=== PATIENT | female | born 1935 | race Caucasian/White ===

== ENCOUNTER → 2017-05-03 | Outpatient (CLI) | payer MEDICARE, OTHER ==
[~2017-05-03] MED LIST: 1-ME1LIQ PO; ALLE4TAB28 PO; AMLO10TA2 PO; ASAC400T PO; ASAC800T PO; CALCTAB75 PO; CYAN1TAB24 PO; D32000TA PO; DIOV80TA4 PO; GUAN2ER PO; GUAN2TAB PO; LEVO137T2 PO; LEVO175T2 PO; LOVA20TA PO; NAPR500T PO; OXYC-360 PO; QUEN12.5 PO; SERT-132 PO; STOOL SOFTNER; TYLETAB34 PO; VALS1TAB64 PO; VITA-136 PO; VITA20002 PO; VITA250L PO; [UNRECOGNIZED DRUG - OTHER] PO
[2017-05-03 09:23] LABS: AUTOMATED NEUTROPHIL # 4.5 TH/MM3 (1.8-7.7); BASOPHIL # 0.1 TH/MM3 (0-0.2); BASOPHIL % 0.6 % (0.0-2.0); EOSINOPHIL # 0.2 TH/MM3 (0-0.4); EOSINOPHIL % 2.8 % (0.0-4.0); HEMATOCRIT 42.3 % (35.0-46.0); HEMO FLAGS DIFF FINAL; LYMPH % 36.9 % (9.0-44.0); LYMPHOCYTE # 3.2 TH/MM3 (1.0-4.8); MEAN CELL VOLUME 88.2 FL (80.0-100.0); MEAN CORPUSCULAR HEMOGLOBIN 29.4 PG (27.0-34.0); MEAN CORPUSCULAR HGB CONC 33.3 % (32.0-36.0); MONO % 6.5 % (0.0-8.0); NEUT % 53.2 % (16.0-70.0); PLATELET COUNT 203 TH/MM3 (150-450); RED BLOOD COUNT 4.79 MIL/MM3 (4.00-5.30); RED CELL DISTRIBUTION WIDTH 13.6 % (11.6-17.2); WHITE BLOOD COUNT 8.5 TH/MM3 (4.0-11.0)
[2017-05-03 10:06] LABS: ANION GAP 7 MEQ/L (5-15); AST (GOT) 20 U/L (15-37); BICARBONATE 28.2 MEQ/L (21.0-32.0); BLOOD UREA NITROGEN 9 MG/DL (7-18); CHLORIDE 106 MEQ/L (98-107); GLOMERULAR FILTRATION RATE 67 ML/MIN (>89); POTASSIUM 4.6 MEQ/L (3.5-5.1); SODIUM (NA) 141 MEQ/L (136-145)
[2017-05-03 10:07] LABS: ALT (GPT) 22 U/L (10-53)
[2017-05-03 10:09] LABS: ALKALINE PHOSPHATASE 67 U/L (45-117); TOTAL BILIRUBIN ADULT 0.9 MG/DL (0.2-1.0)
[2017-05-03 10:18] LABS: FREE T4 1.3 NG/DL (0.76-1.46)
== END ==
LOC: PLAB 07:46
PROVIDERS: ATTEND Family Medicine
DX: E03.9 Hypothyroidism, unspecified (principal); K51.90 Ulcerative colitis, unspecified, without complications
CPT/HCPCS: 36415; 80053; 84439; 84443; 85025

== ENCOUNTER 2017-06-05 11:48 | Emergency (ER) | payer MEDICARE, OTHER ==
[~2017-06-05] VITALS: Ht 160 cm; Wt 80.0 kg
[~2017-06-05 11:48] MED LIST changes: -ALLE4TAB28 PO; -AMLO10TA2 PO; -ASAC800T PO; -CYAN1TAB24 PO; -D32000TA PO; -GUAN2TAB PO; -LEVO137T2 PO; -NAPR500T PO; -TYLETAB34 PO; -VALS1TAB64 PO; -VITA-136 PO; -[UNRECOGNIZED DRUG - OTHER] PO
[2017-06-05 11:49] VITALS: BP 144/68; PULSE 84; RESP 20; TEMP 98.5; O2SAT 92
--- NOTE | 2017-06-05 11:58 | PD ---
Physical Exam Time Seen by Provider: 11:56 Narrative Pt presents to the ED for evaluation of back pain for 1 week. States she missed a step [place] cruise ship last [place] and landed onto her back. States she "felt her back twist" and has had mid to lower back pain since then. VSS. Awaiting bed placement. Data Data Last Documented VS Vital Signs Date Time Temp Pulse Resp B/P Pulse Ox O2 Delivery O2 Flow Rate FiO2 06/05/17 11:49 98.5 84 20 144/68 92 Room Air MDM Supervised Visit with NADIA: Kelly Cates Jun 05, 2017 11:58
[2017-06-05] MEDS ORDERED: [UNRECOGNIZED DRUG - OTHER] PO (12:21)
[2017-06-05] MEDS ORDERED: ALLE4TAB28 PO (12:21)
[2017-06-05] MEDS ORDERED: AMLO10TA2 PO (12:21)
[2017-06-05] MEDS ORDERED: CYAN1TAB24 PO (12:21)
[2017-06-05] MEDS ORDERED: GUAN2TAB PO (12:21)
[2017-06-05] MEDS ORDERED: SERT-132 PO (12:21)
[2017-06-05] MEDS ORDERED: VITA-136 PO (12:21)
[2017-06-05] MEDS ORDERED: VALS1TAB64 PO (12:21)
[2017-06-05] MEDS ORDERED: ASAC800T PO (12:21)
[2017-06-05] MEDS ORDERED: D32000TA PO (12:21)
[2017-06-05] MEDS ORDERED: LOVA20TA PO (12:21)
[2017-06-05] MEDS ORDERED: LEVO137T2 PO (12:21)
[2017-06-05] MEDS ORDERED: KETOROLAC TROMETHAMINE 60 MG/2 ML (IM) VIAL IM ONE (12:30)
[2017-06-05] MEDS ORDERED: ORPHENADRINE INJ 60 MG/2 ML AMP IM ONE (12:30)
[2017-06-05] MEDS ORDERED: oxyCODONE/ACETAMINOPHEN 5 MG/325 MG TAB PO ONE (12:30)
--- NOTE | 2017-06-05 12:31 | PD ---
HPI Chief Complaint: Back/ Neck Pain or Injury Time Seen by Provider: 12:20 Travel History International Travel<30 days: Yes Contact w/Intl Traveler<30days: Yes Name of Country Traveled to: [place] Traveled to known affect area: No History of Present Illness HPI 82-year-old female presents for evaluation after a mechanical fall. She reports that 1 week ago on a cruise she missed a step and fell to the ground. She does not remember specifically if she fell on her back or on her buttocks or legs. Chadd, since then she has had pain in her lower back and left buttocks region. Pain is a twingy type of pain that is constant but worse when sitting or moving. She has been using heating pads and Tylenol. She was unable to get an appointment with her primary care physician, Dr. Dean, which prompted evaluation today. Denies headache, neck pain, upper back pain, chest pain or shortness of breath, numbness or tingling or weakness or radicular pain in the upper or lower extremities, nausea or vomiting, abdominal pain. She has no other complaints. PFSH Past Medical History Arthritis: Yes Autoimmune Disease: No Heart Rhythm Problems: No Cancer: No Cardiovascular Problems: Yes High Cholesterol: Yes Chest Pain: No Congestive Heart Failure: No Diabetes: No Endocrine: No Genitourinary: Yes (2 KIDNEYS,1 ON LEFT. UTI) Hepatitis: No Hiatal Hernia: No Hypertension: Yes Immune Disorder: No Kidney Stones: No Musculoskeletal: Yes Neurologic: No Psychiatric: No Reproductive: No Respiratory: No Immunizations Current: Yes Renal Failure: No Thyroid Disease: Yes Influenza Vaccination: Yes ?: Not Past Surgical History Abdominal Surgery: Yes (cholecystectomy with appendectomy) Body Medical Devices: lense implants Cardiac Surgery: No Endocrine Surgery: No Eye Surgery: Yes (LAURYN CATARACTS) Genitourinary Surgery: No Gynecologic Surgery: No Joint Replacement: No Oral Surgery: Yes (tonsillectomy) Pacemaker: No Thoracic Surgery: No Other Surgery: Yes Social History Alcohol Use: Yes (OCCASIONALLY) Tobacco Use: No Substance Use: No Allergies-Medications (Allergen,Severity, Reaction): Coded Allergies: No Known Allergies (Unverified , 06/05/17) Reported Meds & Prescriptions Reported Meds & Active Scripts Active Tylenol-Codeine #3 (Acetaminophen-Codeine) 300-30 mg Tab 1 Tab PO Q4H PRN Naproxen 500 Mg Tab 500 Mg PO BID 7 Days Reported Allergy Relief (Chlorpheniramine Maleate) 4 Mg Tab 4 Mg PO Q4H PRN Women's Daily Caplet (Multivit,Calc,Mins/Iron/Folic) 1 Each Tablet 2 Tab PO DAILY Vitamin E (Vitamin E Acetate) 400 Unit Capsule 1 Cap PO DAILY D3 (Cholecalciferol) 2,000 Unit Tab 2,000 Unit PO DAILY B12 (Cyanocobalamin) 1,000 Mcg Tab 1,000 Mcg PO DAILY Asacol HD (Mesalamine) 800 Mg Tab 800 Mg PO TID Swallow whole. Take on an empty stomach. Lovastatin 20 Mg Tab 20 Mg PO DAILY Levothyroxine (Levothyroxine Sodium) 137 Mcg Tab 137 Mcg PO DAILY Sertraline (Sertraline HCl) 50 Mg Tab 50 Mg PO DAILY Amlodipine (Amlodipine Besylate) 10 Mg Tab 10 Mg PO DAILY Guanfacine (Guanfacine HCl) 2 Mg Tab 1.5 Tab PO DAILY Do not crush, chew or divide tablet. Take with a meal. Valsartan 80 Mg Tab 80 Mg PO DAILY Review of Systems Except as stated in HPI: all other systems reviewed are Neg Physical Exam Narrative GENERAL: Pleasant well-developed well-nourished female in no acute distress sitting upright in hospital bed. SKIN: Warm and dry. There is no bruising or soft tissue swelling to the buttocks or back or flank regions. HEAD: Atraumatic. Normocephalic. EYES: Pupils equal and round. No scleral icterus. No injection or drainage. ENT: No nasal bleeding or discharge. Mucous membranes pink and moist. NECK: Trachea midline. No JVD. CARDIOVASCULAR: Regular rate and rhythm. No murmur appreciated. RESPIRATORY: No accessory muscle use. Clear to auscultation. Breath sounds equal bilaterally. GASTROINTESTINAL: Abdomen soft, non-tender, nondistended. Hepatic and splenic margins not palpable. MUSCULOSKELETAL: No obvious deformities. There is mild tenderness to palpation to the lower lumbar spine and left sacroiliac region. The patient maintains full range of motion of the lower extremities. She does have some pain with left hip rotation and flexion. NEUROLOGICAL: Awake and alert. No obvious cranial nerve deficits. Motor grossly within normal limits. Normal speech. PSYCHIATRIC: Appropriate mood and affect; insight and judgment normal. Data Data Last Documented VS Vital Signs Date Time Temp Pulse Resp B/P Pulse Ox O2 Delivery O2 Flow Rate FiO2 06/05/17 11:49 98.5 84 20 144/68 92 Room Air Orders Hip, Uni(Ap&Lat) W Ap Pelvis (06/05/17 ) Spine, Lumbar - Ltd (Ap & Lat) (06/05/17 ) Oxycodone-Acetamin 5-325 Mg (Percocet (06/05/17 12:30) Orphenadrine Inj (Norflex Inj) (06/05/17 12:30) Ketorolac Inj (Toradol Inj) (06/05/17 12:30) Ct Thor Spine W/O Contrast (06/05/17 ) MDM Medical Decision Making Medical Screen Exam Complete: Yes Emergency Medical Condition: Yes Medical Record Reviewed: Yes Differential Diagnosis Contusion, hematoma, muscle strain, fracture Narrative Course 82-year-old female has been experiencing lower back/left buttocks pain from mechanical fall and week ago. Examination reveals no bruising or soft tissue swelling, no range of motion limitation, she has been ambulatory. She does have some pain with left hip rotation, some tenderness to palpation to the lower back and left sacroiliac region. Plan is for x-ray of the pelvis/left hip , lumbar spine. She has normal renal function from lab work one month ago. She will be given Toradol, Norflex and Percocet for symptom relief. X-ray imaging revealed a mild compression along superior endplate of T12 of unknown age. Therefore CT of the thoracic spine was ordered and it reveals that the compression deformity is subacute. Upon reexamination the patient's pain is significantly improved. The plan would be to discharge the patient with a short course of naproxen as well as Tylenol with codeine for breakthrough pain, advised follow-up with primary care physician in one week for recheck. She is agreeable to this plan. She is stable for discharge. Diagnosis Primary Impression: Lumbar strain Qualified Code: S39.012A - Lumbar strain, initial encounter Additional Instructions: Medication as needed. Do not drive or drink alcohol and taking Tylenol with codeine. Rest, avoid strenuous activity. Follow-up with her primary care physician in one week for recheck. Return for any emergent medical conditions. Med/Other Pt SpecificInfo: Prescription(s) given Scripts Acetaminophen-Codeine (Tylenol-Codeine #3)300-30 mg Tab1 Tab PO Q4H PRN (PAIN) # 15 TAB Ref 0 Prov:Melissa Diaz DO 06/05/17 Naproxen 500 Mg [id number] Mg PO BID 7 Days Ref 0 Prov:Melissa Diaz DO 06/05/17 Disposition: 01 DISCHARGE HOME Condition: Stable Kodi Christian Jun 05, 2017 12:31
--- NOTE | 2017-06-05 13:26 | RADRPT ---
EXAM DATE/TIME: 06/05/2017 12:47 [facility] COMPARISON: No previous studies available for comparison. INDICATIONS : Fell last Saturday on cruise ship, pain with limited motion left hip. MEDICAL HISTORY : SURGICAL HISTORY : None. ENCOUNTER: Initial ACUITY: 1 week PAIN SCORE: 9/10 LOCATION: Left hip and pelvis. FINDINGS: Examination of the left hip was performed with AP Pelvis. The primary and secondary trabecular patte rn of the femoral neck is intact. The hip joint is of normal width without significant sclerosis or bony hypertrophy. The acetabulum is grossly intact. CONCLUSION: Normal examination for a patient of this age. Khanh Blunt MD on June 05, 2017 at 13:23 Board Certified Radiologist. This report was verified electronically.
--- NOTE | 2017-06-05 13:28 | RADRPT ---
EXAM DATE/TIME: 06/05/2017 12:55 [facility] COMPARISON: No previous studies available for comparison. INDICATIONS : Fell last Saturday on cruise ship pain left hip and low back. MEDICAL HISTORY : None. SURGICAL HISTORY : None. ENCOUNTER: Initial ACUITY: 1 week PAIN SCORE: 9/10 LOCATION: Left lumbar spine. FINDINGS: Two view examination was performed. There are five non-rib bearing vertebral bodies. The lumbar vert ebral bodies appear to be grossly intact. There are primary bony degenerative change lumbar spine. Th ere does appear to be some mild compression along the superior endplate of T12. There is good alignme nt of the SI joints. There is mild curvature lumbar spine to the left. There is disc space narrowing at L2-3.. CONCLUSION: 1. Mild compression along the superior endplate of T12. 2. 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 Khanh Blunt MD on June 05, 2017 at 13:24 Board Certified Radiologist. This report was verified electronically.
--- NOTE | 2017-06-05 15:02 | RADRPT ---
EXAM DATE/TIME: 06/05/2017 14:12 [facility] COMPARISON: No previous studies available for comparison. INDICATIONS : Fell off step ladder 1 week ago, upper back pain. RADIATION DOSE: 15.89 CTDIvol (mGy) MEDICAL HISTORY : Cardiovascular disease. Hypertension. SURGICAL HISTORY : Appendectomy. Cholecystectomy. ENCOUNTER: Initial ACUITY: 1 week PAIN SCALE: 4/10 LOCATION: Bilateral back TECHNIQUE: Volumetric scanning of the thoracic spine was performed. Multiplanar reconstructions in the sagittal , coronal and oblique axial planes were performed. Using automated exposure control and adjustment o f the mA and/or kV according to patient size, radiation dose was kept as low as reasonably achievable to obtain optimal diagnostic quality images. DICOM format image data is available electronically f or review and comparison. FINDINGS: The vertebral bodies of the thoracic spine are in normal alignment without evidence of subluxation. There is a mild subacute compression fracture along the superior endplate of T12. There are mild diff use primary bony degenerative changes. The rest of the thoracic vertebral bodies are grossly intact. T1-T2: Normal. T2-T3: Focal central bulging. The neural foramina are patent bilaterally. T3-T4: The thecal sac has a normal diameter. No evidence of disc bulge or protrusion. T4-T5: The thecal sac has a normal diameter. No evidence of disc bulge or protrusion. T5-T6: The thecal sac has a normal diameter. No evidence of disc bulge or protrusion. T6-T7: The thecal sac has a normal diameter. No evidence of disc bulge or protrusion. T7-T8: The thecal sac has a normal diameter. No evidence of disc bulge or protrusion. T8-T9: The thecal sac has a normal diameter. No evidence of disc bulge or protrusion. T9-T10: The thecal sac has a normal diameter. No evidence of disc bulge or protrusion. T10-T11: The thecal sac has a normal diameter. No evidence of disc bulge or protrusion. T11-T12: The thecal sac has a normal diameter. No evidence of disc bulge or protrusion. T12-L1: The thecal sac has a normal diameter. No evidence of disc bulge or protrusion. CONCLUSION: 1. Mild subacute compression fracture along the superior endplate of T12. 2. Focal mild central bulging T2-T3 3. Mild primary degenerative changes involving the thoracic spine. Khanh Blunt MD on June 05, 2017 at 14:55 Board Certified Radiologist. This report was verified electronically.
[2017-06-05] MEDS ORDERED: NAPR500T PO (15:19)
[2017-06-05] MEDS ORDERED: TYLETAB34 PO (15:19)
== END 2017-06-05 15:41 | disposition home or self-care (01) ==
LOC: NEPC 11:48
DX: S39.012A Strain of muscle, fascia and tendon of lower back, initial encounter (principal); I10 Essential (primary) hypertension; E78.00 Pure hypercholesterolemia, unspecified; M19.90 Unspecified osteoarthritis, unspecified site; W10.9XXA Fall (on) (from) unspecified stairs and steps, initial encounter; Y92.814 Boat as the place of occurrence of the external cause; Y93.9 Activity, unspecified
CPT/HCPCS: 72100; 72128; 73502; 96372; 99285; J1885; J2360

== ENCOUNTER → 2018-04-03 | Outpatient (CLI) | payer MEDICARE, OTHER ==
[~2018-04-03] MED LIST changes: -1-ME1LIQ PO; +ALLE4TAB28 PO; +AMLO10TA2 PO; -ASAC400T PO; +ASAC800T PO; -CALCTAB75 PO; +CYAN1TAB24 PO; +D32000TA PO; -DIOV80TA4 PO; -GUAN2ER PO; +GUAN2TAB PO; +LEVO137T2 PO; -LEVO175T2 PO; +NAPR500T2 PO; -OXYC-360 PO; -QUEN12.5 PO; -STOOL SOFTNER; +TYLETAB34 PO; +VALS1TAB64 PO; +VITA-142 PO; -VITA20002 PO; -VITA250L PO; +[UNRECOGNIZED DRUG - OTHER] PO
[2018-04-03 09:22] LABS: PROTHROMBIN TIME - PATIENT 10.5 SEC (9.8-11.6)
[2018-04-03 14:55] LABS: AUTOMATED NEUTROPHIL # 5.9 TH/MM3 (1.8-7.7); BASOPHIL # 0.1 TH/MM3 (0-0.2); BASOPHIL % 0.7 % (0.0-2.0); EOSINOPHIL # 0.2 TH/MM3 (0-0.4); EOSINOPHIL % 2.3 % (0.0-4.0); HEMATOCRIT 40.8 % (35.0-46.0); HEMOGLOBIN 14.1 GM/DL (11.6-15.3); LYMPH % 30.4 % (9.0-44.0); MEAN CELL VOLUME 87.3 FL (80.0-100.0); MEAN CORPUSCULAR HEMOGLOBIN 30.1 PG (27.0-34.0); MEAN CORPUSCULAR HGB CONC 34.4 % (32.0-36.0); MEAN PLATELET VOLUME 8.9 FL (7.0-11.0); MONO % 6.6 % (0.0-8.0); MONOCYTE # 0.7 TH/MM3 (0-0.9); PLATELET COUNT 217 TH/MM3 (150-450); RED BLOOD COUNT 4.68 MIL/MM3 (4.00-5.30); RED CELL DISTRIBUTION WIDTH 13.6 % (11.6-17.2); WHITE BLOOD COUNT 9.8 TH/MM3 (4.0-11.0)
[2018-04-03 14:58] LABS: ALBUMIN 3.7 GM/DL (3.4-5.0); AST (GOT) 29 U/L (15-37); BICARBONATE 27.4 MEQ/L (21.0-32.0); BLOOD UREA NITROGEN 9 MG/DL (7-18); CALCIUM 8.8 MG/DL (8.5-10.1); CHLORIDE 104 MEQ/L (98-107); CREATININE 0.87 MG/DL (0.50-1.00); GLOMERULAR FILTRATION RATE 62 ML/MIN (>89); GLUCOSE,FASTING 92 MG/DL (74-99); SODIUM (NA) 141 MEQ/L (136-145)
[2018-04-03 15:03] LABS: ALKALINE PHOSPHATASE 70 U/L (45-117); ALT (GPT) 27 U/L (10-53); TOTAL PROTEIN 7.7 GM/DL (6.4-8.2)
== END ==
LOC: PLAB 08:41
PROVIDERS: ATTEND Physician Assistant Medical
DX: K74.0 Hepatic fibrosis (principal)
CPT/HCPCS: 36415; 80053; 82105; 85025; 85610